=== PATIENT | female | born 1960 | race Caucasian/White ===

== ENCOUNTER 2018-05-24 08:00 | Outpatient (CLI) | payer BC ==
[2018-05-24] MEDS ORDERED: Iopamidol 370 76% 100 ML VIAL ONE (09:00)
--- NOTE | 2018-05-24 15:54 | CT ---
NECK CT SOFT TISSUE WITH COTNRAST: INDICATION: Right salivary mass. FINDINGS: Palpable marker overlies the inferior aspect of the right parotid gland. There is no discrete mass o f this region. The bilateral parotid and submandibular glands are symmetric and homogeneous in densi ty. There are small soft tissue nodules overlying each submandibular gland that may relate to adjace nt nonenlarged lymph nodes. No intrinsic mass of the aerodigestive tract. Glottis is patent. Subgl ottic tracheal air column is also patent. There is no abnormal thickening of the epiglottis or effac ement of the Preepiglottic space. Thyroid gland is unremarkable. There is scattered vascular calcif ication. IMPRESSION: No intrinsic salivary gland mass to account for the palpable area of concern. POS: [facility]
== END 2018-05-24 08:01 | disposition home or self-care (01) ==
LOC: SCSCT 08:00
PROVIDERS: ATTEND Otolaryngology Plastic Surgery within the Head & Neck
DX: K11.8 Other diseases of salivary glands (principal)
CPT/HCPCS: 70491

== ENCOUNTER 2019-02-11 00:58 | Inpatient (IN) | payer BC ==
[2019-02-11] MEDS ORDERED: Norepinephrine 8 MG in Dextrose 5% in Water 242 ML IVPB PRN (02:41)
[2019-02-11 05:36] VITALS: BMI 43.0
[2019-02-11] MEDS ORDERED: Sodium Chloride 0.9% 1,000 ML IV SCH (05:45)
--- NOTE | 2019-02-11 05:58 | HP ---
CHIEF COMPLAINT: Left-sided abdominal pain. HISTORY OF PRESENT ILLNESS: This patient is a 58-year-old female who initially presented to the emergency department in [place]. This patient had a procedure on with Dr. Escalante at [facility]. Apparently, she had a laser lithotripsy performed for left ureterolithiasis and a ureteral stent was placed. The patient reports she did get Ancef at the time of the procedure. She was told that she should leave the stent in for a week and longer, if she could tolerate it. She then noted on Sunday she developed some left-sided lower abdominal and flank pain. She reported that when she felt the urge to void, the pain became significant to the point she could no longer hold the urine and she had to get some diapers at that time. She subsequently called Dr. Escalante, who prescribed oxybutynin. She took some of that today, when she got home she felt extremely poor. She called back to Dr. Escalante's office after hours and spoke to the on-call nurse at the office and was told she could present to the emergency department, which is what she decided to do. When she arrived there she had a temperature of 104.2 and significant hypotension. There her blood pressure got as low as 73/51. The patient received 4 L of fluids along with Rocephin, ibuprofen and Tylenol. She reports that she did have some nausea there and was given Zofran for that as well. She reports that she feels a bit of an undulating course where she will feel better and then she will feel worse again. REVIEW OF SYSTEMS: She describes feeling like she has a film over her eyes, but believes it may be simply due to fatigue. She again reported the mild nausea this afternoon while in the emergency department in [place]. She denies any dysuria and says her overall pain has actually improved since she took the oxybutynin prescribed earlier. PAST MEDICAL HISTORY: The patient reports that she had some bulging disk in the lower back some years ago, but that seems to be resolved. She has hypertension, hypothyroidism, history of DVT in the right leg. PAST SURGICAL HISTORY: Appendectomy, cholecystectomy, tonsillectomy, left knee replacement, history of . SOCIAL HISTORY: The patient is a former smoker, who quit smoking about 10 years ago. Denies alcohol or drugs. She is . She is full cod. Her is her surrogate decision maker. She did make it clear that she would not want to be sustained on life support. FAMILY HISTORY: Father had skin cancer, CLL and hypertension. Mother has hypertension, migraines and vertigo. ALLERGIES: SULFA. CURRENT MEDICATIONS: 1. Synthroid 50 mcg p.o. daily. 2. Lisinopril 10 mg daily. 3. Flomax 0.4 mg daily. 4. Oxybutynin 10 mg b.i.d. p.r.n. 5. Multivitamin 1 p.o. daily. 6. Fish oil daily. 7. Stool softeners daily. PHYSICAL EXAMINATION: VITAL SIGNS: The patient's blood pressure decreased to 70s on my arrival, as she is on a Levophed drip now and that was increased. Most recent pressure was 103 systolic with a MAP of around 60. GENERAL APPEARANCE: Age-appropriate female, awake, alert, no distress. She is obese. HEENT: CHECO, no OP lesions. NECK: Supple and symmetric with no lymphadenopathy, JVD, or carotid bruits. HEART: Regular rate and rhythm without murmurs, gallops, or rubs. LUNGS: Clear to auscultation bilaterally with good chest wall expansion and air exchange. ABDOMEN: Soft and nondistended. Positive bowel sounds. There is some tenderness to palpation in the lower left and lateral abdomen. No guarding or rebound. EXTREMITIES: Have trace to 1+ pitting edema in the pretibial areas bilaterally. NEUROLOGIC: She appears to be fully intact. Normal cognition. Moves all extremities spontaneously. Cranial nerves are intact. SKIN: She has good turgor. PSYCHIATRIC: Normal affect and behavior. LABORATORY DATA: White count 7.4, hemoglobin 13.0. Sodium 135, potassium 4.5, chloride 101, CO2 20, BUN 17, creatinine 0.77, GFR 77. Lactic acid 2.4. Repeat is 1.6, AST 17, ALT 25, troponin less than 0.01. TSH is 0.55. Urinalysis shows large blood, positive nitrites, moderate leukocyte esterase, 25 to 50 red cells, greater than 50 white cells with 2+ bacteria. IMAGIN. Chest x-ray is reportedly negative. 2. CT abdomen and pelvis also reportedly shows the left-sided stent, no new acute findings. IMPRESSION AND PLAN: 1. Septic shock secondary to urinary tract infection. The patient has received antibiotics and will continue with the Rocephin and likely broaden out to Zosyn as well. 2. Continue the IV fluids for the time being and continue pressors. She will be admitted to the ICU and have consultation with Pulmonary Critical Care. 3. Urinary tract infection with indwelling left ureteral stent. The goal is to keep the stent for several more days, if tolerated. We will ask Urology to see the patient as well. 4. Hypertension. In light of the patient's septic shock and hypotension, we will hold antihypertensives. We will also hold Flomax for the moment. 5. Hypothyroidism, continue with Synthroid. Job ID: [id number]
[2019-02-11] MEDS: Acetaminophen 325 MG TAB PO PRN ×4 (06:50→21:24)
[2019-02-11] MEDS: Levothyroxine Sodium 50 MCG TAB PO SCH (06:50)
[2019-02-11] MEDS: Piperacillin/Tazobactam 3.375 GM in Sodium Chloride 0.9% 100 ML IVPB SCH ×3 (07:40→17:04)
--- NOTE | 2019-02-11 08:05 | RAD ---
XR Chest 1 View Portable History: Central line placement Comparison: Radiograph 2014 Findings: There is a left internal jugular central venous catheter with tip at the inferior SVC. No p neumothorax. No effusion. No acute osseous abnormality. Impression: Uncomplicated placement left internal jugular central venous catheter.
[2019-02-11] MEDS: Ondansetron PF 4 MG/2 ML Vial IVP PRN ×3 (08:37→21:24)
[2019-02-11] MEDS: Senokot S 8.6-50 MG TAB PO SCH ×2 (08:57→20:54)
[2019-02-11] MEDS: Famotidine 20 MG TAB PO SCH ×2 (08:58→20:54)
--- NOTE | 2019-02-11 09:12 | CT ---
PRELIMINARY REPORT/[facility]/EMERGENCY AFTER HOURS PROCEDURE: EXAM: CT Abdomen and Pelvis Without Contrast EXAM DATE/TIME: 02/11/2019 1:30 AM CLINICAL HISTORY: 58 years old, female; Abdominal pain; Prior surgery; Patient HX: Er 9. F58 tfr from [place] for sepsis. PT reports on , had kidney stone removal with stint placed by Dr. Bolden. PT repor ts Sunday began having pain in side where kidney stone removed when urinating. Surgical history of appendectomy, surgical history of cholecystectomy, surgical history of section TECHNIQUE: Imaging protocol: Axial computed tomography images of the abdomen and pelvis without contrast. COMPARISON: No relevant prior studies available. FINDINGS: Liver: Normal. No mass. Gallbladder and bile ducts: Prior cholecystectomy. No biliary ductal dilatation. Pancreas: Normal. No ductal dilation. Spleen: Normal. No splenomegaly. Adrenals: Normal. No mass. Kidneys and ureters: Left ureteral stent present. Mild left perinephric and periureteric stranding is presumably related to indwelling stent. No hydroureteronephrosis or obstructing ureteral stones. Small nonobstructing stone in the left kidney. Stomach and bowel: Normal. No obstruction. No mucosal thickening. Appendix: No evidence of appendicitis. Intraperitoneal space: Normal. No free air. No significant fluid collection. Vasculature: Normal. No abdominal aortic aneurysm. Lymph nodes: 1.1 cm left iliac chain and left inguinal lymphadenopathy. Bladder: Unremarkable as visualized. Reproductive: Unremarkable as visualized. Bones/joints: No acute fracture. No dislocation. Soft tissues: Unremarkable. IMPRESSION: 1. Mild left perinephric and periureteric stranding is presumably related to indwelling stent. No hyd roureteronephrosis or obstructing ureteral stones. Small nonobstructing stone in the left kidney. 2. 1.1 cm left iliac chain and left inguinal lymphadenopathy. Thank you for allowing us to participate in the care of your patient. Dictated and Authenticated by: Kishan Negro MD 02/11/2019 3:33 AM Central Time ([place] & [place]) FINAL REPORT ABDOMEN AND PELVIC CT SCAN WITHOUT IV CONTRAST: EMERGENT AFTER HOURS STUDY TIME: 1:31 a.m. DATE: 02/11/2019. Left ureteral stent in place with several small nonobstructing left renal calculi. Left perirenal an d periureteral fat stranding. A 1.1 cm diameter left iliac chain lymph node with some minimally prom inent left groin/inguinal lymph nodes. No other significant acute process. This report is in agreement with the preliminary report. POS: [facility]
[2019-02-11] MEDS ORDERED: Heparin 1,000 UNITS/ML VIAL ONE (11:11)
--- NOTE | 2019-02-11 14:52 | CON ---
DATE OF CONSULTATION: 02/11/2019 REASON FOR CONSULTATION: Urosepsis, history of stones. HISTORY OF PRESENT ILLNESS: Ms. Menjivar is a 58-year-old female who is status post cystoscopy, left ureteroscopy and stone extraction with stent placement on 02/06/2019. The procedure was without complication. Her preoperative urine culture was negative. She had ureteral stent placed after the procedure and stent size is 5 x 24 cm. She did well until 02/09/2019, when she developed some pain with urination. She states that she had discomfort for approximately 1 minute after urinating and then it resolved. She had no other symptoms. We began oxybutynin on that day. The following day, February 10, 2019, her urinary symptoms were improved, but she developed fever in the evening. She contact her office who recommended she present to the emergency room immediately. She was taken to [facility] ER. She underwent evaluation there. Evaluation demonstrated a normal white blood cell count of 7.6, and normal creatinine, but her lactic acid was elevated to approximately 2.5. In addition, she has spiked a fever while she was in the emergency room and was tachycardic. For that reason it is felt she had an acute infection. She was given Rocephin and urine culture was obtained. She was then transferred to [facility] for ICU care. She is currently in ICU at [facility]. She is awake and alert, but requiring pressors for her blood pressure. She has had a CT scan demonstrates the stent is still in good position without any significant hydronephrosis on the left side. PAST MEDICAL HISTORY: Allergic rhinitis, COPD, history of DVT, fibromyalgia, hyperlipidemia, hypertension, hypothyroidism, obesity, restrictive airways disease. PAST SURGICAL HISTORY: Appendectomy, bunionectomy, , cholecystectomy, hysterectomy, bilateral salpingo-oophorectomy, right total knee replacement, repair of septal deviation, left foot surgery, ureteroscopy with stone extraction on 02/06/2019. ALLERGIES: SULFA CAUSES SWELLING OF THE THROAT. TETRACYCLINE, SWELLING OF THE EYE. STATINS CAUSE JOINT PAIN. MEDICATIONS: 1. Albuterol. 2. Fluconazole p.r.n. 3. Lisinopril. 4. Multivitamins. 5. Naproxen. 6. Synthroid. FAMILY HISTORY: Significant for hypertension, skin cancer, CLL, lung cancer, diabetes, and hypothyroidism. SOCIAL HISTORY: She is . She is nonsmoker. Denies excessive alcohol use. She works at [employer] in the [employer]. PHYSICAL EXAMINATION: GENERAL: She is awake and alert. She is not in significant pain, but does not feel well. VITAL SIGNS: Temperature 98.8, blood pressure 103/57, and pulse 102. HEENT: Normocephalic, atraumatic. NECK: Supple without masses. CHEST: Clear to auscultation. ABDOMEN: Soft, nontender. No palpable masses. Liver and spleen not palpable. No abdominal tenderness noted. EXTREMITIES: No edema. LABORATORY DATA: White count 7.4, hemoglobin 13.0, hematocrit 40.2, platelets 218. Chemistry; sodium 135, potassium 4.5, chloride 101, carbon dioxide 20, BUN 17, creatinine 0.77, glucose 120. Urinalysis demonstrates 2+ bacteria. IMPRESSION: Ms. Lindsey Menjivar is a 58-year-old female status post left ureteroscopy with stone extraction and stent placement on 02/06/2019. She did well until 02/09 when she developed some discomfort after urination and then yesterday on February 10, 2019, she developed a fever. She is currently on Zosyn and received a dose of Rocephin yesterday in the emergency room. CT scan demonstrates her stent is in good position. Urine culture has been sent and results are pending. Once results are back and she is clinically stable, we will need to change her stent out as it will most likely be seeded with bacteria. RECOMMENDATIONS: 1. Continue antibiotic therapy. 2. Cystoscopy, stent removal, replacement, and ureteroscopy probably February 14, 2019. Job ID: [id number]
--- NOTE | 2019-02-11 17:47 | CON ---
DATE OF CONSULTATION: 02/11/2019 SERVICE: Pulmonary Medicine. REASON FOR CONSULTATION: ICU patient. HISTORY OF PRESENT ILLNESS: The patient is a 58-year-old white female with past medical history significant for renal stones. About a week ago, she started having increasing discomfort. She had a stent that was placed. She was doing great in the postoperative period until one day prior to admission when she started feeling sick. She had a hard time qualifying that. She then in the evening had a fever at 6: 30 p.m. She took some Advil at 7 o'clock. That being said, she continued to feel rapidly worse. As such, she presented to the emergency department. She was hypotensive, and she had findings consistent with an infection. She denies any current fevers, cough, nausea, vomiting, or diarrhea. She had some flank discomfort, which was constant. Overnight, she was given some antibiotics and 4 L of fluid. Her blood pressures have firmed up. She was on Levophed at 10 mcg, which has been titrated down to 2. She is clearing her end-organ damage. She is perfectly awake and oriented. She has no specific complaints presently. PAST MEDICAL HISTORY: 1. Nephrolithiasis. 2. Hypertension. 3. Hypothyroidism. 4. History of DVT. PAST SURGICAL HISTORY: 1. Appendectomy. 2. Cholecystectomy. 3. Tonsillectomy. 4. section. 5. Left knee replacement. 6. Ureter stent placement. SOCIAL HISTORY: She has a [id number] history of smoking, but quit about 10 years ago. Denies any alcohol or illicit drugs. She is . She has no exposure to chemicals, dust, asbestos, or tuberculosis. FAMILY HISTORY: Noncontributory. ALLERGIES: SULFA. MEDICATIONS: List of her inpatient medications was reviewed. Rocephin was discontinued as it has overlapping spectrum with Zosyn. REVIEW OF SYSTEMS: General, head ears, eyes, nose, throat, cardiovascular, respiratory, GI, , musculoskeletal, neurologic, and skin are negative except as mentioned in the HPI. PHYSICAL EXAMINATION: VITAL SIGNS: Temperature max 101.2. Pulse 105, blood pressure 123/75, respirations 22, and saturation 96% on room air. GENERAL: The patient is awake and alert, in no apparent distress. LUNGS: Decent air entry. There is no prolonged expiratory phase or crackles present. HEART: Normal rate regular. ABDOMEN: Soft, nontender, and nondistended. Bowel sounds are positive. MUSCULOSKELETAL: No cyanosis or clubbing. There is no pitting in the bilateral lower extremities. NEUROLOGIC: Grossly nonfocal. LABORATORY DATA: WBC 7.4, hemoglobin 13.0, and platelets 218,000. Band count is 5% on top of 86% neutrophils. Basic metabolic profile is essentially unremarkable with a creatinine 0.77. Liver function studies are unremarkable. BNP and troponin are negative. TSH falls within the normal limits. Lactate was originally 2.4, but has trended downward to 1.6. Urinalysis is significant for pyuria, bacteria, leukocyte esterase, and nitrites. IMAGIN. CT of the abdomen and pelvis demonstrates stranding of the left structures. There is some reactive lymphadenopathy present. 2. Chest x-ray demonstrates good placement for a central line. No acute cardiopulmonary abnormalities are otherwise appreciated. ASSESSMENT: 1. Septic shock, improving. 2. Nephrolithiasis. 3. Pyelonephritis. DISCUSSION AND PLAN: We will transduce a CVP. If we have a good number, we will interrupt IV fluids altogether. Levophed will be weaned away as tolerated. Pulmonary/Critical Care will continue to follow along while the patient remains in this location. When she is off Levophed for about 4 hours, she will likely be stable for transition out of the ICU. That being said, when she firms up, it is my understanding she is going for a replacement of the ureter stent. Empiric antibiotics will be continued. Rocephin will be interrupted as it has overlapping spectrum of coverage with the Zosyn, which should be more than adequate to cover her organism. 70 minutes have been devoted to this patient in various activities. I personally reviewed all imaging studies and laboratory data noted within this document. For fifty percent of this time, I was interacting with the patient at the bedside or coordinating care with the care team. For the remainder of the time I was immediately available to the patient in the hospital unit. Job ID: [id number] [facility]
[2019-02-11] MEDS ORDERED: cefTRIAXone\\ROCEPHIN 1 GM in Sodium Chloride 0.9% 100 ML IVPB SCH (22:00)
[2019-02-12] MEDS: Piperacillin/Tazobactam 3.375 GM in Sodium Chloride 0.9% 100 ML IVPB SCH ×5 (00:11→23:17)
[2019-02-12 04:43] LABS: Phosphorus 2.6 mg/dL (2.3-4.7)
[2019-02-12 05:01] LABS: Band 21 % (5-11); Hemoglobin 11.3 g/dL (12.0-16.0); Lymphocytes 4 % (21-51); MDiff Complete? YES; Mean Corpuscular HGB CONC 32.7 g/dL (32.0-36.0); Mean Corpuscular Hemoglobin 29.4 pg (27.0-31.0); Mean Corpuscular Volume 90.1 fL (78.0-98.0); Mean Platelet Volume 7.3 fL (7.4-10.4); Monocytes 3 % (0-10); Neutrophil 72 % (42-75); Platelet Count 160 thou/uL (130-400); Platelet Morphology Comment Appears Adequate; RBC Morphology Normal; Red Blood Cell (RBC) Count 3.83 mill/uL (4.20-5.40); White Blood Cell (WBC) Count 16.4 thou/uL (4.8-10.8)
[2019-02-12] MEDS: Levothyroxine Sodium 50 MCG TAB PO SCH (05:50)
[2019-02-12] MEDS: Famotidine 20 MG TAB PO SCH ×2 (09:07→19:36)
[2019-02-12] MEDS: Ondansetron PF 4 MG/2 ML Vial IVP PRN ×2 (09:07→17:19)
[2019-02-12] MEDS: Senokot S 8.6-50 MG TAB PO SCH ×2 (09:08→19:36)
[2019-02-12 09:26] LABS: Anion Gap 14 mmol/L (10-20); BUN (Urea Nitrogen) 11 mg/dL (9.8-20.1); Calc. Creatinine Clearance 146 mL/min (70-130); Calcium 8.8 mg/dL (7.8-10.44); Carbon Dioxide 20 mmol/L (22-29); Chloride 105 mmol/L (98-107); Estimated GFR-MDRD 80; Glucose 112 mg/dL (70-105); Magnesium 1.3 mg/dL (1.6-2.6); Potassium 3.7 mmol/L (3.5-5.1); Sodium 135 mmol/L (136-145)
[2019-02-12] MEDS ORDERED: Magnesium Sulfate 4 GM in Sodium Chloride 0.9% 250 ML 250 ML IVPB SCH (13:45)
[2019-02-12] MEDS ORDERED: Furosemide 20 MG/2 ML VIAL SLOW IVP SCH (13:45)
[2019-02-12] MEDS ORDERED: Potassium Chloride 20 MEQ TAB PO SCH (13:45)
--- NOTE | 2019-02-12 14:08 | PRG ---
DATE OF SERVICE: 02/12/2019 SERVICE: Pulmonary Medicine. INTERVAL HISTORY: The patient is breathing comfortably. She has no complaints of chest pain, fevers, or chills. Overnight, her blood pressures firmed up very nicely. There has been no interval change to her condition otherwise. PHYSICAL EXAMINATION: VITAL SIGNS: Afebrile currently. Her temperature maximum was 100.0. Pulse 104 , blood pressure 137/72, respirations 24, and saturation 98% on room air. GENERAL: The patient is awake and alert, in no apparent distress. LUNGS: Decent air entry. No prolonged expiratory phase or wheezing is present. Minimal dependent crackles are noted. HEART: Normal rate, regular. ABDOMEN: Soft, nontender, and nondistended. Bowel sounds are positive. MUSCULOSKELETAL: No cyanosis or clubbing. No pitting in the bilateral lower extremities. NEUROLOGIC: Grossly nonfocal. LABORATORY DATA: WBC 16.4, hemoglobin 11.3, and platelets 160,000. Neutrophil count is 72% on top of 21% bands. Basic metabolic profile is otherwise unremarkable. Magnesium 1.6. Potassium 3.7, phosphorus 2.6. ASSESSMENT: 1. Septic shock, resolved. 2. Nephrolithiasis. 3. Pyelonephritis. DISCUSSION AND PLAN: We will stop transducing the CVP. We will replace magnesium and potassium today. I will give the patient dose of Lasix today and one dose tomorrow morning. We will mobilize the patient as tolerated. At this point, she is stable for transition out of the ICU to the surgical unit. She is tentatively scheduled for a ureter stent exchange on Sunday. Currently, she is stable for transition to the surgical unit. When she leaves the ICU, she will have no further requirements for Pulmonary or Critical Care opinion, and I will sign off. Please call with additional questions or concerns. Job ID: [id number] [facility]
--- NOTE | 2019-02-12 15:55 | PRG ---
DATE OF SERVICE: 02/12/2019 SUBJECTIVE: The patient is seen and examined at the bedside. She feels cold. She noticed quite a bit of swelling all over her body after she was given lot of fluids for her hypotension. She feels somewhat better. OBJECTIVE: VITAL SIGNS: Blood pressure is 138/72, heart rate 100, respiratory rate is 23, and O2 saturation is 95%. HEENT: Head is atraumatic and normocephalic. SKIN: Somewhat pale. Conjunctivae pinkish. Sclerae are nonicteric. Oral mucosa is moist. NECK: Supple. LUNGS: Breath sounds somewhat diminished at both bases. HEART: S1 and S2 normal. No S3. No S4. ABDOMEN: Obese, soft. No guarding. EXTREMITIES: No clubbing or cyanosis. There is 1+ peripheral edema all over her body. NEUROLOGICAL: She follows my commands. She moves all 4 extremities. There is no any motor or sensory deficit present. LABORATORY DATA: Labs showed white count of 16.4, hemoglobin of 11.3, hematocrit 34.5, and platelet count is 160,000. Sodium of 135, potassium 3.7, chloride 105, CO2 of 20, BUN 11, creatinine 0.74, magnesium 1.3. Lactic acid 1.6 from yesterday. The rest of chemistry within normal limits. Microbiology shows gram-negative rods growing in the urine and 2/2 blood cultures. IMPRESSION: 1. Septic shock with hypotension, resolved, status post vasopressor use and IV fluid resuscitation. 2. Gram-negative bacteremia, most likely E coli secondary to recent urologic procedure. 3. Nephrolithiasis. 4. Pyelonephritis. 5. Hypertension. 6. Hypothyroidism. 7. Hypomagnesemia status post replacement with 4 g IV piggyback. DISCUSSION: The patient has improved. She does not require any vasopressors anymore. We will give her one dose of Lasix 20 mg p.o. to diurese her gently. We will continue her Zosyn and apparently Dr. Escalante, her urologist wants to replace her stent on Sunday. Job ID: [id number]
[2019-02-12] MEDS: Acetaminophen 325 MG TAB PO PRN ×2 (17:24→23:03)
--- NOTE | 2019-02-12 18:25 | PRG ---
DATE OF SERVICE: 02/12/2019 SUBJECTIVE: Chief complaint, weak, otherwise no pain. OBJECTIVE: VITAL SIGNS: T-max 100.8, blood pressure 138/82, and pulse 100. ABDOMEN: Soft and nontender. No peritoneal signs. EXTREMITIES: No edema. No calf tenderness. ASSESSMENT: Improving clinically. She is now off pressors. Blood culture demonstrates Escherichia coli and sensitivities are not back yet. PLAN: Stent removal and placement of a new stent on Sunday. Job ID: [id number]
[2019-02-13] MEDS: Piperacillin/Tazobactam 3.375 GM in Sodium Chloride 0.9% 100 ML IVPB SCH ×3 (05:55→16:40)
[2019-02-13] MEDS: Levothyroxine Sodium 50 MCG TAB PO SCH (05:55)
[2019-02-13 06:37] LABS: #Basophils 0.1 thou/uL (0.0-0.2); #Eosinphils 0.1 thou/uL (0.0-0.7); #Lymphocytes 0.6 thou/uL (1.20-3.40); #Monocytes 0.4 thou/uL (0.11-0.59); #Neutrophils 7.8 thou/uL (1.40-6.50); %Eosinophils 0.6 % (0.0-10.0); %Monocytes 4.2 % (0.0-10.0); %Neutrophils 87.2 % (42.0-75.0); Hemoglobin 11.5 g/dL (12.0-16.0); Mean Corpuscular HGB CONC 32.7 g/dL (32.0-36.0); Mean Corpuscular Hemoglobin 29.2 pg (27.0-31.0); Mean Corpuscular Volume 89.3 fL (78.0-98.0); Mean Platelet Volume 8.2 fL (7.4-10.4); Platelet Count 148 thou/uL (130-400); RBC Distribution Width 12.9 % (11.5-14.5); Red Blood Cell (RBC) Count 3.94 mill/uL (4.20-5.40)
[2019-02-13 06:58] LABS: Anion Gap 13 mmol/L (10-20); BUN (Urea Nitrogen) 9 mg/dL (9.8-20.1); Calc. Creatinine Clearance 135 mL/min (70-130); Calcium 9.3 mg/dL (7.8-10.44); Carbon Dioxide 24 mmol/L (22-29); Chloride 103 mmol/L (98-107); Estimated GFR-MDRD 77; Glucose 105 mg/dL (70-105); Magnesium 1.9 mg/dL (1.6-2.6); Sodium 136 mmol/L (136-145)
[2019-02-13] MEDS ORDERED: PROVENTIL INHALER 6.7 G (200 INHALATIONS) INH PRN (07:10)
[2019-02-13] MEDS ORDERED: Potassium Chloride 20 MEQ TAB PO SCH (08:00)
[2019-02-13] MEDS: Senokot S 8.6-50 MG TAB PO SCH ×2 (08:27→19:51)
[2019-02-13] MEDS: Famotidine 20 MG TAB PO SCH ×2 (08:27→19:51)
[2019-02-13] MEDS: Acetaminophen 325 MG TAB PO PRN ×3 (08:28→21:48)
[2019-02-13] MEDS ORDERED: Furosemide 20 MG/2 ML VIAL SLOW IVP SCH (09:00)
--- NOTE | 2019-02-13 10:11 | PRG ---
DATE OF SERVICE: 02/13/2019 SUBJECTIVE: The patient is seen and examined at bedside. She is sitting in the chair during my visit. She has some pain in her right upper back, especially when she turns. Her appetite is still quite poor. She goes to the bathroom quite often since she had IV Lasix. OBJECTIVE: VITAL SIGNS: Blood pressure is 152/82, pulse is 81, respirations 20, and O2 saturation is 97, temperature is 98.1. HEENT: Head is atraumatic and normocephalic. Eyes are PERRLA. Sclerae are nonicteric. Oral mucosa is moist. NECK: Supple. Obese. LUNGS: Clear. HEART: S1, S2 normal. No S3. No S4. ABDOMEN: Soft, nontender, obese. EXTREMITIES: 1+ peripheral edema, upper and lower extremities. NEUROLOGICAL: She is alert and oriented x4. There is no any motor or sensory deficits present. Cranial nerves are intact. LABORATORY DATA: Labs are pending. IMPRESSION: 1. Sepsis with shock, hypotension resolved. 2. Fluid overload on IV Lasix, improving. 3. Pyelonephritis with Klebsiella, which is pansensitive. 4. E coli bacteremia. 5. Nephrolithiasis. 6. Hypertension. 7. Hypothyroidism. 8. Hypomagnesemia, replaced. PLAN: We will continue her on Lasix 20 mg IV push since she is still fluid overloaded. We will continue her Zosyn. Dr. Escalante is supposed to replace her stent tomorrow. We will use some Motrin for her muscular pain in her right upper back and start her lisinopril tomorrow morning. Job ID: [id number]
[2019-02-13] MEDS: Ibuprofen 100 MG/5 ML UDCUP PO PRN ×2 (11:14→19:49)
--- NOTE | 2019-02-13 12:23 | PRG ---
DATE OF SERVICE: 02/13/2019 LOCATION: She is at [facility]. SUBJECTIVE: The patient feels much better, has been ambulating, urinating frequently. No left-sided flank pain at this time. OBJECTIVE: VITAL SIGNS: T-max 99, blood pressure 138/82, pulse 94. CHEST: Clear to auscultation. CARDIOVASCULAR: No murmurs. ABDOMEN: Soft, nontender. No palpable masses. LABORATORY DATA: Urine culture, Klebsiella pansensitive. Blood cultures, E coli sensitive only to amikacin, ampicillin/sulbactam, cefoxitin, gentamicin, meropenem, Zosyn, tobramycin, and Bactrim. ASSESSMENT: Bacteremia with E coli. Interestingly, E coli did not grow in her urine, although this is the most likely source of her bacteremia. She did grow Klebsiella in the urine, but did not grow Klebsiella in her bloodstream. Regardless, the E coli is sensitive only to Bactrim in regard to oral antibiotics. Unfortunately, she is resistant to Bactrim and therefore will require infusion therapy for completion of her treatment. We will request Infectious Disease consultation for advice regarding appropriate antibiotic choice as an outpatient and arrangement for infusion therapy as an outpatient. PLAN: 1. Stent removal and ureteroscopy tomorrow. 2. Infectious Disease consultation. Job ID: [id number]
--- NOTE | 2019-02-13 17:39 | CON ---
DATE OF CONSULTATION: 02/13/2019 REASON FOR CONSULTATION: Urosepsis following lithotripsy procedure. HISTORY OF PRESENT ILLNESS: A 58-year-old patient, who has a history of prior deep vein thrombosis and recently identified nephrolithiasis, left side, who had been managed at [facility]. She had laser lithotripsy a few days ago and all the stone material had been removed and urethral stent was left in place. She had cefazolin as a prophylactic antimicrobial prior to the procedure. She subsequently developed left-sided abdominal pain in the flank area associated with fever and chills, general malaise, and ended up being coming to the emergency room and was admitted with sepsis. She was hypotensive on arrival and responded quickly to fluids. She is currently receiving Zosyn, feeling much improved. Apparently , Dr. Escalante is going to take a look at the left side outflow tract and then hopefully remove the stent and not have to replace it. No headaches, visual symptoms, sore throat, odynophagia, or dysphagia. No cough, sputum production, or chest pain. No back pain. The pain in the left side of the abdomen has improved. No dysuria. Voiding without difficulty. No joint symptoms. No neurological symptoms. MEDICAL HISTORY: History of low back pain; deep vein thrombosis while in a cruise to [facility], treated in a cruise ship; hypertension; and nephrolithiasis. PAST SURGICAL HISTORY: Appendectomy, cholecystectomy, tonsillectomy, , and left knee replacement. SOCIAL HISTORY: Former smoker, quit 10 years ago. . ALLERGIES: SULFA DRUGS. FAMILY HISTORY: Hypertension, CLL, migraines. CURRENT MEDICATIONS: P.r.n. medications; 1. Synthroid. 2. Zestril. 3. Zofran. 4. Zosyn. PHYSICAL EXAMINATION: VITAL SIGNS: T-max 101.2, she has been afebrile since; BP 101/63; pulse 90; respirations 16; and O2 saturation 92%. SKIN: Not remarkable. She has a peripheral IV access and is voiding in the toilet. I's and O's have been pretty much even for the past 2 days. All other vital signs are normal. No lymphadenopathy. Ocular movements conjugate. Oral cavity normal. NECK: Supple. No jugular vein distention or carotid bruits. LUNGS: Symmetric. Clear breath sounds. HEART: S1, S2. Regular rate. No S3 or S4. ABDOMEN: With mild tenderness in the left flank area. No distention. No organomegaly or ascites. No bladder distention. MUSCULOSKELETAL: No joint inflammatory activity. Moves extremities equally. Cognitive function appears to be intact. LABORATORY DATA: White cell count of 16.4 down to 9, hemoglobin 11.3, MCV 90, platelets 160 with 72% neutrophils, 21% bands on admission. Chemistry with a creatinine 0.74, calcium 8.8, magnesium 1.3. Microbiology, we have Escherichia coli in 2 sets of blood cultures with an ESBL phenotype. It is susceptible to trimethoprim/sulfamethoxazole. In the urine culture, she had a Klebsiella pneumoniae, the Klebsiella component was susceptible to pretty much all antimicrobials. The patient had an abdomen and pelvis CT on admission, which shows left ureteral stent, several small nonobstructing left renal calculi, and left perirenal and periureteral stranding. ASSESSMENT: 1. History of prior deep venous thrombosis. 2. Recent instrumentation of urinary tract with lithotripsy for management of nephrolithiasis. 3. Urosepsis with pyelonephritis following the urologic instrumentation with an ESBL organism. DISCUSSION: The patient will have reassessment of the area to see if the stent can be removed and not replaced. After that, continue on treatment for the ESBL pathogen for the usual duration around 10 to 14 days. The patient states that she can take Bactrim, but I am going to have to verify that with her since it is listed as an allergic reaction that she had in the past. If that is the case, then we will have to put a PICC line and treat with IV Invanz or meropenem in the outpatient setting. Job ID: [id number] MTDD
[2019-02-13] MEDS: MEROPENEM 1 GM/50 ML 1 GM in Premix Bag 1 BAG IVPB SCH (21:50)
[2019-02-14] MEDS: Acetaminophen 325 MG TAB PO PRN ×2 (02:37→14:26)
[2019-02-14] MEDS: MEROPENEM 1 GM/50 ML 1 GM in Premix Bag 1 BAG IVPB SCH ×3 (05:25→20:55)
[2019-02-14] MEDS: Levothyroxine Sodium 50 MCG TAB PO SCH (05:25)
[2019-02-14 06:00] LABS: #Basophils 0.1 thou/uL (0.0-0.2); #Eosinphils 0.1 thou/uL (0.0-0.7); #Lymphocytes 0.7 thou/uL (1.20-3.40); #Monocytes 0.4 thou/uL (0.11-0.59); %Basophils 1.7 % (0.0-1.0); %Eosinophils 2.3 % (0.0-10.0); %Lymphocytes 13.5 % (21.0-51.0); %Monocytes 8.2 % (0.0-10.0); %Neutrophils 74.2 % (42.0-75.0); Hemoglobin 11.2 g/dL (12.0-16.0); Mean Corpuscular HGB CONC 32.4 g/dL (32.0-36.0); Mean Corpuscular Hemoglobin 28.9 pg (27.0-31.0); Mean Corpuscular Volume 89.1 fL (78.0-98.0); Mean Platelet Volume 7.9 fL (7.4-10.4); Platelet Count 154 thou/uL (130-400); Red Blood Cell (RBC) Count 3.86 mill/uL (4.20-5.40); White Blood Cell (WBC) Count 5.4 thou/uL (4.8-10.8)
[2019-02-14 06:11] LABS: Anion Gap 11 mmol/L (10-20); BUN (Urea Nitrogen) 16 mg/dL (9.8-20.1); Calc. Creatinine Clearance 150 mL/min (70-130); Carbon Dioxide 26 mmol/L (22-29); Chloride 104 mmol/L (98-107); Estimated GFR-MDRD 87; Glucose 113 mg/dL (70-105); Magnesium 1.8 mg/dL (1.6-2.6); Sodium 137 mmol/L (136-145)
[2019-02-14] MEDS: Ibuprofen 100 MG/5 ML UDCUP PO PRN (06:52)
[2019-02-14] MEDS: Senokot S 8.6-50 MG TAB PO SCH (07:11)
[2019-02-14] MEDS: Lisinopril 5 MG TAB PO SCH (08:00)
[2019-02-14] MEDS: Famotidine 20 MG TAB PO SCH ×2 (08:01→20:53)
--- NOTE | 2019-02-14 08:19 | PRG ---
DATE OF SERVICE: 02/14/2019 SUBJECTIVE: The patient is seen and examined at the bedside. She complains about headache, which is located in front of her head in the forehead area and in the back of her neck. No nausea or vomiting. She states that she has some chronic sinus problem and her nasal passages are not very patent. Her appetite is fair. She has running stools, several of bowel movements since last night. OBJECTIVE: VITAL SIGNS: Blood pressure is 133/76, pulse is 97, temperature is 97.9, respirations 18, O2 saturation is 95% on room air. HEENT: Head is atraumatic and normocephalic. Eyes are PERRLA. Sclerae are nonicteric. Oral mucosa is moist. NECK: Supple. LUNGS: Clear. HEART: S1, S2 normal. ABDOMEN: Soft, but tender in the mid epigastrium to palpation. Bowel sounds are present, no organomegaly. EXTREMITIES: No clubbing, cyanosis, or edema. NEUROLOGIC: She is alert and oriented x4. There is no any motor or sensory deficits. Cranial nerves are intact. LABORATORY DATA: White count of 5.4, hemoglobin 11.2, hematocrit 34.4, platelet count is 154,000. Normal chemistry. Magnesium 1.8. Microbiology, nothing new. IMPRESSION: 1. Sepsis with shock, hypotension, resolved. 2. Fluid overload, improved. 3. Pyelonephritis with Extended-spectrum beta-lactamases. 4. Escherichia coli bacteremia. 5. Nephrolithiasis. 6. Hypertension. 7. Hypothyroidism. 8. Hypomagnesemia, replaced. 9. Headache, most likely related to her chronic sinus problem. DISCUSSION: The patient is going to be tried on Afrin and tramadol. Ibuprofen will be stopped since she has some pain in her abdomen on examination, which could be related to nonsteroidal anti-inflammatory agent use. The patient was seen by Dr. Sierra yesterday. She was switched to meropenem from Zosyn and the plan is to put a PICC line and she will continue on outpatient basis with most likely meropenem. He will make final decision before she is discharged. Today, Dr. Escalante is going to remove her stent and place another new one if it is necessary, so I am planning to put her on Protonix for PUD prevention. Job ID: [id number]
[2019-02-14] MEDS: Saccharomyces boulardii 250 MG CAP PO SCH (10:35)
[2019-02-14] MEDS: Oxymetazoline HCl 0.05% (30 ML BOT) NS PRN (10:35)
[2019-02-14] MEDS ORDERED: Fentanyl 100 MCG/2 ML VIAL ONE (11:32)
[2019-02-14] MEDS ORDERED: Iothalamate Meglumine 60% 50 ML VIAL FS ONE (11:42)
[2019-02-14] MEDS ORDERED: PHENYLEPHRINE-NS 100 MCG/ML 10 ML SYRINGE ONE (14:55)
[2019-02-14] MEDS ORDERED: PROPOFOL 200 MG/20 ML VIAL ONE (14:55)
[2019-02-14] MEDS ORDERED: Lidocaine 1% PF 5 ML VIAL ONE (14:55)
--- NOTE | 2019-02-14 14:57 | OP ---
DATE OF PROCEDURE: 02/14/2019 PREOPERATIVE DIAGNOSIS: Left ureteral obstruction secondary to stone. POSTOPERATIVE DIAGNOSIS: Left ureteral obstruction secondary to stone. PROCEDURES PERFORMED: Cystoscopy, left ureteroscopy, left stent removal and replacement, removal of mucosal flap from the left ureter. ANESTHESIA: General. INDICATIONS: Ms. Lindsey Menjivar is status post left ureteroscopy and stone extraction approximately 2 weeks ago. Approximately 1 week after the procedure, she developed sepsis and has been in the hospital since 02/10/2019 for treatment of sepsis. She has responded to treatment well. She is being brought to the operating room at this time to remove the indwelling ureteral stent and endoscopic evaluation of left ureter. DESCRIPTION OF PROCEDURE: The patient was given general anesthesia and IV antibiotics has been continued. The indwelling stent was grasped, and a guidewire was passed through the indwelling ureteral stent. It was coiled in the region of the left renal pelvis. Rigid ureteroscopy was then performed. She had a flap of mucosal tissue in the distal ureter. Otherwise, ureter looked fine. Biopsy forceps utilized to grasp and remove this flap of tissue. A 5 x 24 double-J stent was then passed over the Glidewire and coiled in the left renal pelvis and in the bladder as determined fluoroscopically and cystoscopically. The patient was awaken in the operating room, transferred to recovery room in stable condition. COMPLICATIONS: None. ESTIMATED BLOOD LOSS: Minimal. PLAN: Stent to be removed by the patient in 3 days to allow for healing from the removal of the mucosal flap. Job ID: [id number]
[2019-02-14] MEDS: traMADol HCl 50 MG TAB PO PRN (15:16)
--- NOTE | 2019-02-14 17:08 | PRG ---
DATE OF SERVICE: 02/14/2019 SUBJECTIVE: Feeling better. No headaches. No abdominal pain. No vomiting. No shortness of breath. The patient had the stent exchange by Dr. Escalante. She has no fever. OBJECTIVE: GENERAL: Awake, alert, oriented. No distress. LUNGS: Clear. HEART: S1-S2. Regular rate. ABDOMEN: Soft. Not distended or tender. EXTREMITIES: Moves all extremities equally. LABORATORY DATA: White cell count down to 5.4, hemoglobin 11, platelets 154. Creatinine 0.69. ASSESSMENT AND DISCUSSION: Prior deep vein thrombosis, recent instrumentation of urinary tract with lithotripsy for management of nephrolithiasis and urosepsis with pyelonephritis following the instrumentation. The patient has had an ESBL organism retrieved from blood cultures and the urine and we will have to continue on IV ertapenem for 10-14 days in the outpatient setting. PICC line placement. We will make arrangements with casey saw operator. Job ID: [id number]
--- NOTE | 2019-02-14 18:52 | SPC ---
PICC placement Ultrasound-guided venous access: (Peripherally inserted central catheter) DATE: 02/14/2019 HISTORY: 58-year-old female with urinary tract infection and septicemia requiring long-term IV antibiotics TECHNIQUE: Catheter caliber: 5 Nauruan Catheter trim length:54 cm Catheter lumen number:single Catheter tip location:right atrium Vein accessed:left basilic Total fluoroscopy time: 1.2 min. Dose area product: 5942 mGy*cm^2 Signed, informed consent was obtained. A tourniquet was applied at the proximal aspect of the arm. Th e arm was prepped and draped in the usual sterile fashion. A 25-gauge needle was used to applied buffered lidocaine superficially. The vein was punctured with a 21-gauge micropuncture needle under u ltrasound guidance. A 0.018 inch guidewire was advanced through the micropuncture needle and into the vein. Under fluoroscopic guidance, the guidewire was advanced to the superior vena cava. The PICC was flushed and trimmed to the appropriate length. The micropuncture needle was exchanged over the guidewire for a 5 Nauruan peel-away dilator sheath. The dilator was exchanged over the guidewire for t he PICC, which was then further advanced under fluoroscopy. The sheath and guidewire were removed. The PICC was flushed again and secured in place at the arm after adjustment of tip position. The ankit ent tolerated the procedure well. There was no complication. IMPRESSION: Successful placement of PICC (peripherally inserted central catheter).
[2019-02-15] MEDS: Oxymetazoline HCl 0.05% (30 ML BOT) NS PRN (04:31)
[2019-02-15] MEDS: traMADol HCl 50 MG TAB PO PRN (04:35)
[2019-02-15] MEDS: Acetaminophen 325 MG TAB PO PRN ×2 (04:36→17:12)
[2019-02-15] MEDS: Levothyroxine Sodium 50 MCG TAB PO SCH (05:31)
[2019-02-15] MEDS: MEROPENEM 1 GM/50 ML 1 GM in Premix Bag 1 BAG IVPB SCH ×3 (05:32→21:29)
[2019-02-15] MEDS: Saccharomyces boulardii 250 MG CAP PO SCH (09:35)
[2019-02-15] MEDS: Lisinopril 5 MG TAB PO SCH (09:35)
[2019-02-15] MEDS: Famotidine 20 MG TAB PO SCH ×2 (09:35→20:00)
[2019-02-15] MEDS: Oxybutynin ER 5 MG TAB PO SCH (09:37)
--- NOTE | 2019-02-15 13:02 | PRG ---
DATE OF SERVICE: 02/15/2019 SUBJECTIVE: She still complains about some headache in the frontal part and some drainage in her throat. Her abdominal discomfort is improved. The pain in the back is improved. OBJECTIVE: VITAL SIGNS: Blood pressure is 119/81, pulse is 77, respirations 18, temperature is 98.1. HEENT: Head is atraumatic and normocephalic. Eyes are PERRLA. Sclerae are nonicteric. Oral mucosa is moist. NECK: Supple. LUNGS: Clear. HEART: S1 and S2 normal. No S3. No S4. No any murmur. ABDOMEN: Soft, nondistended, nontender. EXTREMITIES: No clubbing, cyanosis, or edema. NEUROLOGICAL: She is alert and oriented x4. There is no any motor or sensory deficits present. Cranial nerves are intact. There is some soreness on applied pressure to the forehead which suggest of some sinus problem. LABORATORY DATA: Pending. IMPRESSION: 1. Sepsis with shock, hypotension, resolved. 2. Pyelonephritis with extended-spectrum beta-lactamase. 3. Escherichia coli bacteremia. 4. Fluid overload, improved. 5. Nephrolithiasis. 6. Hypertension. 7. Hypothyroidism. 8. Hypomagnesemia. 9. Headache, most likely related to her sinus problem. DISCUSSION: The patient had her stent replaced yesterday by Dr. Escalante. She is tolerating that fine. She is supposed to remove the stent in 3 days from the time of placement. She is getting meropenem per Dr. Sierra and she is supposed to continue this on outpatient basis for 2 weeks. The PICC line was placed and it is functioning as soon as her antibiotic treatments for outpatient is arranged. She can be discharged if we get the green light from Urology Service. Job ID: [id number]
[2019-02-15 14:28] LABS: #Eosinphils 0.1 thou/uL (0.0-0.7); #Lymphocytes 1.4 thou/uL (1.20-3.40); #Monocytes 1.2 thou/uL (0.11-0.59); #Neutrophils 6.8 thou/uL (1.40-6.50); %Basophils 0.3 % (0.0-1.0); %Eosinophils 0.6 % (0.0-10.0); %Lymphocytes 14.3 % (21.0-51.0); %Monocytes 12.9 % (0.0-10.0); %Neutrophils 71.9 % (42.0-75.0); Hemoglobin 12.5 g/dL (12.0-16.0); Mean Corpuscular HGB CONC 32.8 g/dL (32.0-36.0); Mean Corpuscular Volume 88.3 fL (78.0-98.0); Mean Platelet Volume 7.5 fL (7.4-10.4); Platelet Count 203 thou/uL (130-400); RBC Distribution Width 13.3 % (11.5-14.5); Red Blood Cell (RBC) Count 4.31 mill/uL (4.20-5.40); White Blood Cell (WBC) Count 9.4 thou/uL (4.8-10.8)
[2019-02-15 14:42] LABS: Anion Gap 13 mmol/L (10-20); BUN (Urea Nitrogen) 10 mg/dL (9.8-20.1); Calc. Creatinine Clearance 148 mL/min (70-130); Calcium 9.4 mg/dL (7.8-10.44); Carbon Dioxide 26 mmol/L (22-29); Chloride 97 mmol/L (98-107); Estimated GFR-MDRD 86; Glucose 103 mg/dL (70-105); Potassium 4.2 mmol/L (3.5-5.1); Sodium 132 mmol/L (136-145)
[2019-02-16 04:51] LABS: #Lymphocytes 1.9 thou/uL (1.20-3.40); #Monocytes 1.5 thou/uL (0.11-0.59); #Neutrophils 7.7 thou/uL (1.40-6.50); %Basophils 0.2 % (0.0-1.0); %Eosinophils 0.4 % (0.0-10.0); %Monocytes 13.1 % (0.0-10.0); %Neutrophils 69.2 % (42.0-75.0); Hemoglobin 12.1 g/dL (12.0-16.0); Mean Corpuscular HGB CONC 33.1 g/dL (32.0-36.0); Mean Corpuscular Hemoglobin 29.1 pg (27.0-31.0); Mean Platelet Volume 7.6 fL (7.4-10.4); Platelet Count 209 thou/uL (130-400); RBC Distribution Width 13.4 % (11.5-14.5); Red Blood Cell (RBC) Count 4.14 mill/uL (4.20-5.40); White Blood Cell (WBC) Count 11.1 thou/uL (4.8-10.8)
[2019-02-16 04:57] LABS: Anion Gap 12 mmol/L (10-20); BUN (Urea Nitrogen) 9 mg/dL (9.8-20.1); Calc. Creatinine Clearance 160 mL/min (70-130); Calcium 9.7 mg/dL (7.8-10.44); Carbon Dioxide 27 mmol/L (22-29); Chloride 99 mmol/L (98-107); Estimated GFR-MDRD Greater than 90; Glucose 109 mg/dL (70-105); Sodium 134 mmol/L (136-145)
[2019-02-16] MEDS: Levothyroxine Sodium 50 MCG TAB PO SCH (05:11)
[2019-02-16] MEDS: MEROPENEM 1 GM/50 ML 1 GM in Premix Bag 1 BAG IVPB SCH ×3 (05:12→21:00)
[2019-02-16] MEDS: Saccharomyces boulardii 250 MG CAP PO SCH (09:41)
[2019-02-16] MEDS: Famotidine 20 MG TAB PO SCH ×2 (09:42→20:59)
[2019-02-16] MEDS: Oxybutynin ER 5 MG TAB PO SCH (09:44)
[2019-02-16] MEDS: Lisinopril 5 MG TAB PO SCH (09:45)
--- NOTE | 2019-02-16 12:29 | PRG ---
DATE OF SERVICE: 02/16/2019 SUBJECTIVE: The patient is seen and examined at the bedside. She does not have much complaints to offer. She does not have any headache anymore. She wants to go home. Her appetite is fair. OBJECTIVE: VITAL SIGNS: Blood pressure is 152/81, pulse is 98, respiratory rate is 20, and O2 saturation is 91% on room air. HEENT: Head is atraumatic and normocephalic. Eyes are PERRLA. Sclerae are nonicteric. Oral mucosa is moist. NECK: Supple. LUNGS: Clear. HEART: S1, S2 normal. No S3. No S4. ABDOMEN: Soft, nontender, obese. EXTREMITIES: No clubbing, cyanosis, or edema. NEUROLOGICAL EXAMINATION: She is alert and oriented x4. There is no any motor or sensory deficit present. Cranial nerves are intact. LABORATORY DATA: Showed white count of 11.1, hemoglobin of 12.1, hematocrit 36.4, platelet count is 209. Sodium of 134, potassium 4.0, chloride 99, CO2 9, and creatinine 0.65. Glycemia is 109, calcium 9.7. ASSESSMENT AND: 1. Sepsis with shock, hypotension, resolved. 2. Pyelonephritis with extended-spectrum beta lactamase Escherichia coli and Klebsiella. 3. Escherichia coli bacteremia. 4. Fluid overload, improved. 5. Nephrolithiasis, status post re-stenting. 6. Hypertension. 7. Hypothyroidism. 8. Hypomagnesemia, resolved. 9. Headache, resolved. DISCUSSION: The patient is doing well. She is just waiting for her antibiotic arrangements in the outpatient basis and as soon as this part is taken care of, she will be discharged. We will continue her current regimen with meropenem. Job ID: [id number]
[2019-02-17] MEDS: Levothyroxine Sodium 50 MCG TAB PO SCH (06:02)
[2019-02-17] MEDS: MEROPENEM 1 GM/50 ML 1 GM in Premix Bag 1 BAG IVPB SCH ×2 (06:02→13:43)
[2019-02-17] MEDS: Famotidine 20 MG TAB PO SCH (07:58)
[2019-02-17] MEDS: Lisinopril 5 MG TAB PO SCH (07:58)
[2019-02-17] MEDS: Oxybutynin ER 5 MG TAB PO SCH (07:58)
[2019-02-17] MEDS: Saccharomyces boulardii 250 MG CAP PO SCH (07:59)
[2019-02-17 16:39] VITALS: BP 152/90; TEMP 97.5
--- NOTE | 2019-02-18 10:40 | DIS ---
DATE OF ADMISSION: 02/11/2019 DATE OF DISCHARGE: 02/17/2019 FINAL DIAGNOSES: 1. Sepsis with shock, hypotension, resolved. 2. Pyelonephritis with extended-spectrum beta lactamase Escherichia coli and Klebsiella. 3. Escherichia coli bacteremia. 4. Fluid overload, corrected. 5. Nephrolithiasis, status post stenting, then re-stenting. 6. Hypertension. 7. Hypothyroidism. 8. Hypomagnesemia, resolved. 9. Headache, resolved. CONSULTANTS: 1. Dr. Escalante for Urology Service. 2. Dr. Mick Chawla, Pulmonary/Critical Care Service. 3. Dr. Tony Sierra, Infectious Disease Service. HOSPITAL COURSE: The patient is a 58-year-old female with left-sided abdominal pain, who came to the emergency room in [place] with above-mentioned complaints. Apparently, she had procedure done by Dr. Escalante at [facility]. This was laser lithotripsy for left ureterolithiasis and ureteral stent was placed. The patient was then started having some left-sided lower abdominal pain and flank pain. She felt some urge to void. The pain became significant to the point that she could not longer hold the urine. Subsequently, she called Dr. Escalante, who prescribed her oxybutynin, which she took and she felt extremely poor after that. She called back to Dr. Escalante's office after hours and spoke to the on-call nurse at the office and she was told she present to the emergency department for further evaluation and help. Her temperature at the time of arrival to the emergency room was 104.2 and she was hypotensive, the blood pressure dropped to 70s systolic. The patient received 4 L of fluids along with Rocephin, ibuprofen, and Tylenol. At the time of emergency room evaluation, her white count was 7.4, hemoglobin was 13.0. Sodium 135, potassium 4.5, chloride 101, CO2 of 20, BUN 17, creatinine 0.77. Lactic acid 2.4, repeat was 1.6. AST and ALT within normal limits. Troponin was less than 0.01. TSH was 0.55. Urinalysis showed large amount of blood, positive nitrites, moderate leukocyte esterase, 25 to 50 red blood cells, greater than 50 white blood cells, with 2+ bacteria. Chest x-ray was negative. CT of the abdomen and pelvis showed left-sided stent. No new acute findings were present on this CT. The patient was in septic shock secondary to urinary tract infection secondary to the procedure. She was given Rocephin in the emergency room, which was broadened out to Zosyn. She received more IV fluids and got admitted to ICU. Subsequently, she was seen by Dr. Escalante on consultation, who recommended to continue antibiotic therapy and he planned to do cystoscopy, stent removal, replacement, and ureteroscopy in the next few days being hypotensive, she required vasopressors, she was on Levophed stopped. Subsequently, her hypotension improved to the point that vasopressor was stopped and she was able to maintain her blood pressure without any support. Blood cultures came back positive for Escherichia coli, which was ESBL and urine culture came back positive for Klebsiella pneumoniae and E coli, again multidrug resistant organism ESBL. Infectious Disease specialist was consulted and the patient was seen by Dr. Sierra, who recommended to switch to meropenem and continue therapy. Subsequently, she had ureteral stent replaced by Dr. Escalante, and her postoperative phase was positive for some headaches, which resolved with some anti-inflammatory medications. She is doing well today. Blood pressure is 138/80, pulse is 70, respiratory rate is 20, and O2 saturation 94% on room air. She is seen and examined before she is discharged. She is discharged home. Arrangements were made to continue Invanz IV piggyback every 24 hours for the next 8 days after she finished the course of antibiotic treatment in [place]. She will follow up with primary care physician and she will call Dr. Escalante's office to do a followup appointment to see him. She is going to stay on low-salt diet, activities as tolerated. DISCHARGE MEDICATIONS: 1. Invanz 1 g IV piggyback every 24 hours. 2. Levothyroxine 50 mcg once a day. 3. Lisinopril 10 mg once a day. 4. Flomax 0.4 mg once a day. 5. Oxybutynin 10 mg daily. 6. Fish oil daily. 7. Also, she needs to take some probiotics at home. TIME SPENT: Time spent for this discharge is less than 30 minutes. Job ID: [id number]
== END 2019-02-17 16:33 | disposition home or self-care (01) | DRG 659 ==
LOC: ERS 00:58 → CCU 05:19 → T4-A 02-12 15:47
PROVIDERS: ADMIT Internal Medicine; ATTEND Internal Medicine
PROC: 0TC78ZZ Extirpation of Matter from Left Ureter, Via Natural or Artificial Opening Endoscopic (ICD-10-PCS; principal; 2019-02-14)
PROC: 02HV33Z Insertion of Infusion Device into Superior Vena Cava, Percutaneous Approach (ICD-10-PCS; 2019-02-14)
PROC: B548ZZA Ultrasonography of Superior Vena Cava, Guidance (ICD-10-PCS; 2019-02-14)
PROC: 0TP98DZ Removal of Intraluminal Device from Ureter, Via Natural or Artificial Opening Endoscopic (ICD-10-PCS; 2019-02-14)
PROC: 0T748DZ Dilation of Left Kidney Pelvis with Intraluminal Device, Via Natural or Artificial Opening Endoscopic (ICD-10-PCS; 2019-02-14)
DX: T83.592A Infection and inflammatory reaction due to indwelling ureteral stent, initial encounter (principal); A41.51 Sepsis due to Escherichia coli [E. coli]; R65.21 Severe sepsis with septic shock; N12 Tubulo-interstitial nephritis, not specified as acute or chronic; Z68.41 Body mass index [BMI] 40.0-44.9, adult; Y83.8 Other surgical procedures as the cause of abnormal reaction of the patient, or of later complication, without mention of misadventure at the time of the procedure; E87.70 Fluid overload, unspecified; N20.0 Calculus of kidney; I10 Essential (primary) hypertension; E03.9 Hypothyroidism, unspecified; E83.42 Hypomagnesemia; Z96.652 Presence of left artificial knee joint; R51 Headache; Z96.651 Presence of right artificial knee joint; E66.9 Obesity, unspecified; J44.9 Chronic obstructive pulmonary disease, unspecified; Z86.718 Personal history of other venous thrombosis and embolism; Z79.01 Long term (current) use of anticoagulants; Z90.49 Acquired absence of other specified parts of digestive tract; Z87.891 Personal history of nicotine dependence; Z88.2 Allergy status to sulfonamides; Z90.710 Acquired absence of both cervix and uterus
CPT/HCPCS: 36415; 36569; 71045; 74176; 76000; 80048; 83605; 83735; 84100; 85025; C1751; C1758; C1769; J0696; J1644; J1940; J2001; J2185; J2405; J2543; J2704; J3010; J3475; J3490; J7050; J7070